=== PATIENT | male | born 1940 | race African-American/Black ===

== ENCOUNTER 2018-01-14 09:07 | Outpatient (CLI) | payer MEDICARE ==
[2018-01-14] MEDS ORDERED: ISOVUE-370 76%-LOCM 1 ML ONE (14:45)
== END 2018-01-14 09:08 | disposition home or self-care (01) ==
LOC: BICCT 09:07
PROVIDERS: ATTEND Family Medicine
DX: R10.9 Unspecified abdominal pain (principal); N28.89 Other specified disorders of kidney and ureter; E27.8 Other specified disorders of adrenal gland
CPT/HCPCS: 74160

== ENCOUNTER 2018-07-04 07:16 | Outpatient (CLI) | payer MEDICARE ==
[2018-07-04 09:36] LABS: #Eosinphils 0.2 thou/uL (0.0-0.7); #Lymphocytes 0.8 thou/uL (1.20-3.40); #Monocytes 0.5 thou/uL (0.11-0.59); #Neutrophils 2.8 thou/uL (1.40-6.50); %Basophils 0.3 % (0.0-1.0); %Eosinophils 3.6 % (0.0-10.0); %Lymphocytes 17.9 % (21.0-51.0); %Monocytes 11.8 % (0.0-10.0); %Neutrophils 66.4 % (42.0-75.0); Mean Corpuscular HGB CONC 32.4 g/dL (32.0-36.0); Mean Corpuscular Hemoglobin 32.1 pg (27.0-31.0); Mean Corpuscular Volume 99.2 fL (78.0-98.0); Mean Platelet Volume 9.4 fL (7.4-10.4); Platelet Count 92 thou/uL (130-400); RBC Distribution Width 13.1 % (11.5-14.5); Red Blood Cell (RBC) Count 4.04 mill/uL (4.70-6.10); White Blood Cell (WBC) Count 4.2 thou/uL (4.8-10.8)
[2018-07-04 09:38] LABS: INR-International Normal Ratio 1.1; PTT 29.2 SEC (22.9-36.1)
[2018-07-04 10:08] LABS: ALT (SGPT) 11 U/L (8-55); AST (SGOT) 13 U/L (5-34); Albumin 3.9 g/dL (3.4-4.8); Alkaline Phosphatase 68 U/L (40-150); Anion Gap 14 mmol/L (10-20); BUN (Urea Nitrogen) 16 mg/dL (8.4-25.7); Bilirubin, Total 1.3 mg/dL (0.2-1.2); Calc. Creatinine Clearance 0 mL/min (70-130); Calcium 9.2 mg/dL (7.8-10.44); Carbon Dioxide 24 mmol/L (23-31); Cardiac Risk 2.5 (Less than 4.5); Chloride 104 mmol/L (98-107); Cholesterol 127 mg/dl (< 200 Desired); Estimated GFR-MDRD 79; Globulin 2.4 g/dL (2.4-3.5); Glucose 155 mg/dL (83-110); HDL Cholesterol 51 mg/dL (>60 Neg Risk); LDL Cholesterol, Calculated 66 mg/dL; Potassium 3.8 mmol/L (3.5-5.1); Protein, Total 6.3 g/dL (5.8-8.1); Sodium 138 mmol/L (136-145); Triglycerides 52 mg/dL (Less than 150)
== END 2018-07-04 07:17 | disposition home or self-care (01) ==
LOC: LABBT 07:16
PROVIDERS: ATTEND Internal Medicine Cardiovascular Disease
DX: Z01.812 Encounter for preprocedural laboratory examination (principal); R07.9 Chest pain, unspecified
CPT/HCPCS: 80053; 80061; 85025; 85610; 85730

== ENCOUNTER 2018-07-13 05:51 | Day surgery (SDC) | payer MEDICARE ==
[2018-07-04 08:37] VITALS: BMI 34.5
[2018-07-13] MEDS ORDERED: Midazolam HCl 2 mg/2 ml Vial ONE (08:28)
[2018-07-13] MEDS ORDERED: Heparin 10,000 UNITS/1 ML VIAL ONE (08:29)
[2018-07-13] MEDS ORDERED: Fentanyl 100 MCG/2 ML VIAL ONE (08:29)
[2018-07-13] MEDS ORDERED: Nitroglycerin 100MG/250ML BOT 250 ML ONE (08:29)
[2018-07-13] MEDS ORDERED: Verapamil 5 MG/2 ML VIAL ONE (08:29)
[2018-07-13] MEDS ORDERED: Iopamidol 370 76% 100 ML VIAL ONE (11:33)
== END 2018-07-13 14:11 | disposition home or self-care (01) ==
LOC: CCL 05:51
PROVIDERS: ATTEND Internal Medicine Cardiovascular Disease
PROC: 4A023N7 Measurement of Cardiac Sampling and Pressure, Left Heart, Percutaneous Approach (ICD-10-PCS; principal; 2018-07-13)
PROC: B2111ZZ Fluoroscopy of Multiple Coronary Arteries using Low Osmolar Contrast (ICD-10-PCS; 2018-07-13)
DX: I25.10 Atherosclerotic heart disease of native coronary artery without angina pectoris (principal); I25.84 Coronary atherosclerosis due to calcified coronary lesion; E11.9 Type 2 diabetes mellitus without complications; E78.00 Pure hypercholesterolemia, unspecified; I10 Essential (primary) hypertension; I44.7 Left bundle-branch block, unspecified; Z87.891 Personal history of nicotine dependence; Z79.82 Long term (current) use of aspirin; Z79.84 Long term (current) use of oral hypoglycemic drugs; Z79.899 Other long term (current) drug therapy
CPT/HCPCS: 93458; 99152; 99153; C1769; J1644; J2250; J3010; Q9967

== ENCOUNTER 2018-09-26 07:08 | Outpatient (CLI) | payer MEDICARE ==
--- NOTE | 2018-09-26 09:25 | CT ---
CT ABDOMEN AND PELVIS WITH AND WITHOUT IV CONTRAST 09/26/2018 CLINICAL INFORMATION: History renal cell carcinoma on the right. COMPARISON: 01/14/2018 Technique: Multiple contiguous axial CT images are obtained through the abdomen and pelvis with IV contrast. Cor onal reformatted images are provided. FINDINGS: Lower Chest: Calcified granulomata are again seen at the right lung base. No noncalcified pulmonary n odule or mass is seen. Vessels: Vascular calcifications are seen in the abdominal aorta and involving the iliac arteries. Abdomen: Portal vein:Patent Gallbladder: No calcified gallstones. Normal caliber wall. Liver: Stable punctate low-density focus within the lateral segment left hepatic lobe. Liver otherwis e has a normal appearance. Pancreas: within normal limits. Spleen: within normal limits. Adrenals: There is fullness of each adrenal gland which is a symmetric finding. The adrenal glands al so have a stable appearance compared to study in 2018. 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 Kidneys: Again noted is a 3.2 cm fluid attenuation lesion compatible with a cyst involving the medial aspect superior pole right kidney. There is also a 3.1 cm hyperdense lesion seen in the anterior medial superior pole left kidney just anterior to the level of the cyst which does demonstrate enhanc ement on the postcontrast images. This is stable compared to the prior study but is worrisome for a neoplastic process. Subcentimeter too small to characterize hypodense lesions are again seen in the left kidney. There is no hydronephrosis bilaterally, and no renal calculus is present. Peritoneum: No ascites or free air; no fluid collection. Bowel: Multiple colonic diverticula are seen involving the colon predominantly involving the descendi ng and sigmoid colon.S mall bowel is normal in caliber.The appendix is not visualized. Patient reportedly has history of appendectomy. Mesentery and Retroperitoneum: No enlarged mesenteric or retroperitoneal lymph nodes. Abdominal Wall: within normal limits. Pelvis: Reproductive Organs: Prostate gland is mildly enlarged measuring 5.1 cm in transverse dimensions with slightly lobulated anterior margin resulting in mild mass effect on the posterior inferior aspect of the urinary bladder. Pelvis within normal limits. Bladder: Incompletely distended but otherwise demonstrates grossly normal appearance aside from mass effect on the posterior inferior aspect of the urinary bladder secondary to the prostate gland. Bones: Degenerative changes are seen in the spine. Bilateral hip osteoarthritis is present. No lytic or sclerotic osseous lesions are appreciated. IMPRESSION: 1. Enhancing mass superior pole left kidney not significantly changed in size compared to study in 20 18. This is worrisome for a neoplastic process. 2. Right renal cyst with too small to characterize hypodense lesions left kidney. 3. No renal or ureteral calculi seen bilaterally. 4. 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 5. Moderate enlargement of prostate gland. 6. Colonic diverticulosis.
[2018-09-26] MEDS ORDERED: Iopamidol 370 76% 100 ML VIAL ONE (14:59)
== END 2018-09-26 07:09 | disposition home or self-care (01) ==
LOC: CT 07:08
PROVIDERS: ATTEND Urology
DX: C64.1 Malignant neoplasm of right kidney, except renal pelvis (principal); N28.1 Cyst of kidney, acquired; N28.89 Other specified disorders of kidney and ureter; N40.0 Benign prostatic hyperplasia without lower urinary tract symptoms; K57.30 Diverticulosis of large intestine without perforation or abscess without bleeding
CPT/HCPCS: 74178; 82565; Q9967

== ENCOUNTER 2018-10-26 10:00 | Inpatient (IN) | payer MEDICARE ==
[2018-11-03] MEDS ORDERED: Fentanyl 100 MCG/2 ML VIAL ONE ×3 (06:42→12:25)
[2018-11-03] MEDS ORDERED: Bupivacaine/Epinephrine 0.25% 30 ML VIAL ONE (06:55)
[2018-11-03] MEDS ORDERED: Phenylephrine HCL 10 MG/ML VIAL ONE (07:28)
[2018-11-03] MEDS ORDERED: SUGAMMADEX SODIUM 500 MG/5 ML VIAL ONE (07:28)
[2018-11-03] MEDS ORDERED: Albuterol Sulfate HFA (OR ONLY) ONE (07:29)
[2018-11-03] MEDS ORDERED: Scopolamine 1.5 mg/72 hour Patch ONE (08:27)
[2018-11-03] MEDS ORDERED: Promethazine HCl 25 MG/ML VIAL SLOW IVP PRN (10:16)
[2018-11-03] MEDS ORDERED: Meperidine HCl/PF 25 MG/ML VIAL SLOW IVP PRN (10:16)
[2018-11-03] MEDS ORDERED: HYDROmorphone 2 MG/ML VIAL SLOW IVP PRN (10:16)
[2018-11-03] MEDS ORDERED: Ondansetron HCl/PF 4 MG/2 ML Vial IVP PRN (10:16)
[2018-11-03] MEDS ORDERED: Promethazine HCl 25 MG/ML VIAL IM PRN (10:16)
[2018-11-03] MEDS ORDERED: HYDROcodone/Acetaminophen 5/325 mg Tablet PO PRN (13:03)
[2018-11-03] MEDS ORDERED: Dextrose 5% in Water 1,000 ML IV PRN (13:03)
[2018-11-03] MEDS ORDERED: Ondansetron PF 4 MG/2 ML Vial IVP PRN (13:03)
[2018-11-03] MEDS ORDERED: Insulin Regular 300 UNITS/3 ML VIAL SC PRN (13:03)
[2018-11-03] MEDS ORDERED: Bisacodyl 10 MG SUPP PR PRN (13:03)
[2018-11-03] MEDS ORDERED: diphenhydrAMINE 25 MG CAP PO PRN (13:03)
[2018-11-03] MEDS ORDERED: Mag-Al 1200 mg/1200 mg/30 ML UDCUP PO PRN (13:03)
[2018-11-03] MEDS ORDERED: Morphine 4 MG/ML VIAL SLOW IVP PRN ×2 (13:03)
[2018-11-03] MEDS ORDERED: Dextrose 50% Abboject 50 ML SYRINGE SLOW IVP PRN (13:03)
[2018-11-03] MEDS ORDERED: Oxybutynin 5 MG TAB PO PRN (13:03)
[2018-11-03] MEDS ORDERED: hydrALAZINE 20 MG/ML VIAL SLOW IVP PRN (13:03)
[2018-11-03] MEDS ORDERED: Acetaminophen 500 MG TAB PO PRN (13:03)
[2018-11-03 14:23] LABS: Hemoglobin 13.6 g/dL (14.0-18.0); Mean Corpuscular HGB CONC 32.7 g/dL (32.0-36.0); Mean Platelet Volume 9.4 fL (7.4-10.4); Platelet Count 74 thou/uL (130-400); RBC Distribution Width 12.6 % (11.5-14.5); Red Blood Cell (RBC) Count 4.12 mill/uL (4.70-6.10); White Blood Cell (WBC) Count 7.8 thou/uL (4.8-10.8)
[2018-11-03] MEDS: Sodium Chloride 0.9% 1,000 ML IV SCH ×3 (14:37→23:54)
[2018-11-03 14:42] LABS: Anion Gap 14 mmol/L (10-20); BUN (Urea Nitrogen) 17 mg/dL (8.4-25.7); Calc. Creatinine Clearance 79 mL/min (70-130); Calcium 8.5 mg/dL (7.8-10.44); Carbon Dioxide 25 mmol/L (23-31); Chloride 102 mmol/L (98-107); Estimated GFR-MDRD 66; Glucose 180 mg/dL (83-110); Potassium 3.5 mmol/L (3.5-5.1); Sodium 137 mmol/L (136-145)
[2018-11-03] MEDS: ceFAZolin 1 GM/D5W 1 GM in Premix Bag 1 BAG IVPB SCH ×2 (14:56→20:32)
[2018-11-03] MEDS ORDERED: PROPOFOL 200 MG/20 ML VIAL ONE (15:11)
[2018-11-03] MEDS ORDERED: Rocuronium Bromide 10 MG/ML (10ML VIAL) ONE (15:11)
[2018-11-03] MEDS ORDERED: Ondansetron PF 4 MG/2 ML Vial ONE (15:11)
[2018-11-03] MEDS ORDERED: Glycopyrrolate 0.2 MG/ML 5 ML SYRINGE ONE (15:11)
[2018-11-03] MEDS ORDERED: Lidocaine 1% PF 5 ML VIAL ONE (15:11)
[2018-11-03] MEDS: HYDROcodone/Acetaminophen 5/325 mg Tablet PO PRN ×2 (16:02→20:27)
--- NOTE | 2018-11-03 18:14 | OP ---
DATE OF PROCEDURE: 11/03/2018 SERVICE: Urology. PREOPERATIVE DIAGNOSIS: Right renal cell carcinoma. POSTOPERATIVE DIAGNOSIS: Right renal cell carcinoma. PROCEDURE PERFORMED: Right laparoscopic renal cryoablation via the transabdominal approach. INDICATIONS FOR PROCEDURE: Mr. Michele is an 78-year-old black male, who initially had seen me for a right-sided renal mass measuring about 2.5 cm. He underwent a renal biopsy, which demonstrated a Sandra grade 2 RCC, which is relatively low risk. We discussed active surveillance versus minimally invasive treatments including thermal ablation. The patient elected to have this ablated instead of monitoring the mass. Risks and benefits of the surgery were discussed and he has agreed to proceed forward. DESCRIPTION OF PROCEDURE: After identification of armband and verification of consent, the patient was brought back to the operating room, where he underwent general anesthesia with endotracheal intubation. He was then placed in the modified left lateral decubitus position with the table flexed. All pressure points padded, and the patient was secured to the bed. He was then prepped and draped in usual sterile fashion. After appropriate time-out, entry into the peritoneum was obtained with a Veress needle at the umbilicus. Insufflation was carried out through high-flow and low-pressure until full pneumoperitoneum was achieved. An 11-mm trocar was inserted for the camera port lateral to the rectus muscle, and then a left-handed 5 mm port and right-handed 12 mm port were additionally placed for the laparoscopic surgery. An additional 5 mm port was used for liver tractor. Initial dissection was started by taking down some adhesions on the colon. The adhesions of the colon to the liver were also divided and liver retractor brought in. After the liver was fully mobilized to allow for cephalad retraction, the hepatic flexure of the colon was then mobilized to bring the colon medial. The duodenum was identified and also retracted medially. Through a combination of blunt dissection and careful cautery, the IVC could be identified in the renal vein heading toward into the kidney. Gerota fascia was opened, and dissection toward the renal tumor was performed. Due to the patient's history of diabetes, his fat was extremely sticky and extremely difficult to dissect. Especially in the area of the tumor, the fat was extremely adherent on the surface of the tumor. Prolonged dissection was necessary to expose the tumor and after an extended amount of time, I felt that the tumor was adequately exposed. Some of the parenchyma surrounding the tumor was not able to be exposed, but the fat was extremely adherent and the area from the inferior medial aspect of the tumor was almost adjacent to the renal vein, misstep in this location could result in severe bleeding and need for nephrectomy; therefore, I opted to leave this fat alone. The other aspects of the tumor were cleared off until most of the borders of the tumor could be identified. The adrenal gland was in very close proximity to the tumor, and this was dissected free of the tumor and retracted cephalad. A Surgicel was placed between the IVC and adrenal gland to give some space between the adrenal gland and the tumor. Once the tumor was adequately exposed, ultrasound was performed to ensure that we did indeed have a tumor, which demonstrated the tumor just anterior to the renal cyst, which was exactly as was seen on the CT scan preoperatively. This did indicate that this was indeed the tumors of concern and it did appear as an exophytic mass on laparoscopy. The borders were marked out and the entry sites for the cryoablation probes were cognitively marked. The IceRod CX 90, 17.5 cm probes were brought in through the skin just below the costal margin and placed into the tumor for a depth of approximately 2.5 to 3 cm, what was measured out on the CT scan. The free cycle was started for active freezing for 10 minutes, active thawing for 6 minutes, and a second cycle for the same duration. Cautery was used prior to removal of the probes to seal any blood vessels. There was minimal bleeding after removal of the probes. FloSeal was applied over the tumor and Surgicel applied over the FloSeal to hold it in place. The Gerota's fat was then brought back over the tumor and the colon and liver mobilized back into the original locations. Pneumoperitoneum was taken down to ensure that there was no bleeding when lifting up the Gerota fascia to ensure that without pneumo to hold pressure on any open veins and nothing was seen bleeding with insufflation pressure of approximately 4 mmHg. The peritoneum was re-insufflated, and a Adam-Ramon was used to close the 12 and 11 mm ports using a 0 Vicryl. After this, pneumoperitoneum was completely taken down and the remaining 5 mm ports were removed. The skin was then closed with a 4-0 Monocryl in subcuticular fashion and Dermabond applied. Prior to closure, the skin was re-infiltrated with 0.25% Marcaine with epinephrine with a total of 26 mL used. The patient was then taken out of position and awakened, taken to PACU for recovery in stable condition. COMPLICATIONS: None. BLOOD LOSS: Approximately 350 mL. RETAINED TUBES AND DRAINS: A 16-Sinhala Gonzalez catheter. SPECIMENS: None. DISPOSITION: The patient will be admitted to the hospital for postoperative recovery. We will plan to have him start ambulating tomorrow. Monitor his hematocrit and hemoglobin, and then he can be discharged home. Job ID: [id number]
[2018-11-03] MEDS: Brimonidine Tartrate 0.2% Ophth Soln 5 ml Bottle EA EYE SCH (20:25)
[2018-11-03] MEDS: Carvedilol 6.25 MG TAB PO SCH (20:25)
[2018-11-03] MEDS: Latanoprost 0.005% Ophth Soln 2.5 ml Bottle EA EYE SCH (20:26)
[2018-11-03] MEDS: Sacubitril 24.5 MG/Valsartan 25.5 MG TABLET PO SCH (20:26)
[2018-11-03] MEDS: Docusate 100 MG CAP PO SCH (20:26)
[2018-11-03] MEDS: DorzolamidE/Timolol 2%/0.5% Ophth Soln 10 ml Bottle EA EYE SCH (20:27)
[2018-11-04] MEDS: ceFAZolin 1 GM/D5W 1 GM in Premix Bag 1 BAG IVPB SCH (05:12)
[2018-11-04 06:21] LABS: #Lymphocytes 0.6 thou/uL (1.20-3.40); #Monocytes 0.7 thou/uL (0.11-0.59); #Neutrophils 5.9 thou/uL (1.40-6.50); %Basophils 0.1 % (0.0-1.0); %Eosinophils 0.6 % (0.0-10.0); %Lymphocytes 7.8 % (21.0-51.0); %Monocytes 9.9 % (0.0-10.0); %Neutrophils 81.6 % (42.0-75.0); Hemoglobin 12.4 g/dL (14.0-18.0); Mean Corpuscular HGB CONC 31.7 g/dL (32.0-36.0); Mean Corpuscular Hemoglobin 31.9 pg (27.0-31.0); Mean Platelet Volume 9.4 fL (7.4-10.4); Platelet Count 74 thou/uL (130-400); RBC Distribution Width 12.7 % (11.5-14.5); Red Blood Cell (RBC) Count 3.87 mill/uL (4.70-6.10); White Blood Cell (WBC) Count 7.2 thou/uL (4.8-10.8)
[2018-11-04 06:40] LABS: Anion Gap 11 mmol/L (10-20); BUN (Urea Nitrogen) 11 mg/dL (8.4-25.7); Calc. Creatinine Clearance 95 mL/min (70-130); Calcium 7.9 mg/dL (7.8-10.44); Carbon Dioxide 24 mmol/L (23-31); Chloride 104 mmol/L (98-107); Estimated GFR-MDRD 82; Glucose 153 mg/dL (83-110); Potassium 3.1 mmol/L (3.5-5.1); Sodium 136 mmol/L (136-145)
[2018-11-04] MEDS: Brimonidine Tartrate 0.2% Ophth Soln 5 ml Bottle EA EYE SCH ×2 (09:31→21:02)
[2018-11-04] MEDS: HYDROcodone/Acetaminophen 5/325 mg Tablet PO PRN (09:31)
[2018-11-04] MEDS: Carvedilol 6.25 MG TAB PO SCH ×2 (09:33→21:02)
[2018-11-04] MEDS: Hydrochlorothiazide 25 MG TAB PO SCH (09:34)
[2018-11-04] MEDS: Alogliptin 25 MG TAB PO SCH (09:34)
[2018-11-04] MEDS: Atorvastatin Calcium 40 MG TAB PO SCH (09:35)
[2018-11-04] MEDS: Finasteride 5 MG TAB PO SCH (09:35)
[2018-11-04] MEDS: Pioglitazone HCl 45 MG TAB PO SCH (09:35)
[2018-11-04] MEDS: Docusate 100 MG CAP PO SCH ×2 (09:35→21:02)
[2018-11-04] MEDS: Sacubitril 24.5 MG/Valsartan 25.5 MG TABLET PO SCH ×2 (09:35→21:03)
[2018-11-04] MEDS: DorzolamidE/Timolol 2%/0.5% Ophth Soln 10 ml Bottle EA EYE SCH ×2 (09:36→21:02)
[2018-11-04] MEDS ORDERED: Potassium Chloride 20 MEQ TAB PO SCH (15:45)
[2018-11-04] MEDS ORDERED: metFORMIN 500 MG TAB PO SCH (17:00)
[2018-11-04 17:42] VITALS: BMI 38.6
--- NOTE | 2018-11-04 18:00 | PRG ---
DATE OF SERVICE: 11/04/2018 SUBJECTIVE: The patient states he is doing well. He has not had any nausea or vomiting. His pain is minimal. He has not been out of bed due to bed rest restrictions. He has no other complaints. OBJECTIVE: VITAL SIGNS: Temperature 98.8, pulse 77, respirations 18, blood pressure 143/61, and saturation 97% on room air. GENERAL: No apparent distress, communicative, and alert. CARDIOVASCULAR: Regular rate and rhythm. ABDOMEN: Soft, nontender, mildly distended. Positive bowel sounds. Incision is clean, dry, and intact. : Gonzalez catheter in place with clear yellow urine. EXTREMITIES: No clubbing, cyanosis, or edema. LABORATORY EVALUATION: The full set of labs are in the [facility] system, which I have reviewed. Of note, white count is 7.2 with hemoglobin of 12.4, platelet count of 74. Creatinine is 1.05, potassium is 3.1. ASSESSMENT AND PLAN: An 78-year-old black male with a right renal cell carcinoma status post laparoscopic renal cryoablation. On postop day 1, he appears to be healing appropriately. He has some distention of his abdomen, but I do not think that he has an ileus. I do think that he can start walking as he has no evidence of bleeding based on his hemoglobin. We will take out his Gonzalez catheter. Stop his IV fluids, advance him to regular diet and have him ambulate. We will replace his potassium today. If his hemoglobin remains stable until tomorrow and he has no further issues, no nausea or vomiting, tolerating a regular diet, able to ambulate on his own and his pain is controlled, I think he can be discharged home. Dr. Alvaro East will be here over the weekend and will discharge the patient. I have instructed to the patient and gone over all of his discharge instructions today. Job ID: [id number]
[2018-11-04] MEDS: Sodium Chloride 0.9% 1,000 ML IV SCH (20:26)
[2018-11-04] MEDS: Latanoprost 0.005% Ophth Soln 2.5 ml Bottle EA EYE SCH (21:02)
[2018-11-05] MEDS: Hydrochlorothiazide 25 MG TAB PO SCH (08:39)
[2018-11-05] MEDS: Docusate 100 MG CAP PO SCH (08:39)
[2018-11-05] MEDS: Atorvastatin Calcium 40 MG TAB PO SCH (08:39)
[2018-11-05] MEDS: Pioglitazone HCl 45 MG TAB PO SCH (08:39)
[2018-11-05] MEDS: Alogliptin 25 MG TAB PO SCH (08:39)
[2018-11-05] MEDS: Finasteride 5 MG TAB PO SCH (08:39)
[2018-11-05] MEDS: Sacubitril 24.5 MG/Valsartan 25.5 MG TABLET PO SCH (08:39)
[2018-11-05] MEDS: Brimonidine Tartrate 0.2% Ophth Soln 5 ml Bottle EA EYE SCH (08:40)
[2018-11-05] MEDS: DorzolamidE/Timolol 2%/0.5% Ophth Soln 10 ml Bottle EA EYE SCH (08:40)
[2018-11-05] MEDS: Carvedilol 6.25 MG TAB PO SCH (08:59)
[2018-11-05 09:00] VITALS: BP 133/64
[2018-11-05 12:51] VITALS: TEMP 98.4
== END 2018-11-05 14:43 | disposition home or self-care (01) | DRG 658 ==
LOC: SURG A 11-03 05:55 → 2NO 11-03 13:48
PROVIDERS: ADMIT Urology; ATTEND Urology
PROC: 0T5 Urinary System, Destruction (ICD-10-PCS; principal; 2018-11-03)
DX: C64.1 Malignant neoplasm of right kidney, except renal pelvis (principal); I10 Essential (primary) hypertension; E78.5 Hyperlipidemia, unspecified; J44.9 Chronic obstructive pulmonary disease, unspecified; M19.91 Primary osteoarthritis, unspecified site; E66.9 Obesity, unspecified; Z68.38 Body mass index [BMI] 38.0-38.9, adult; Z98.890 Other specified postprocedural states
CPT/HCPCS: 36415; 36416; 36430; 71046; 80048; 81001; 85025; 85027; 85610; 85730; 86850; 86900; 86901; 87086; 93005; 93010; J0131; J0690; J1815; J2001; J2370; J2405; J2704; J3010

== ENCOUNTER 2018-11-02 09:28 | Outpatient (CLI) | payer MEDICARE ==
--- NOTE | 2018-10-26 11:24 | RAD ---
EXAM: Two views chest PROVIDED CLINICAL HISTORY: Preoperative evaluation. COMPARISON: CT abdomen on 01/14/2018. FINDINGS: Cardiac silhouette and pulmonary vasculature are within normal limits. The lungs are clear. Degenera tive changes are seen in the spine. There is oval-shaped area of calcification overlying the right mid lung zone. This was partially visualized on CT abdomen and demonstrated dystrophic type calcifica tions in the soft tissues right posterior lateral chest which were in a fat-containing lesion incompletely imaged on that exam. IMPRESSION: 1. No acute cardiopulmonary process. 2. Calcification overlying right midlung zone likely shown to represent dystrophic calcifications in the soft tissues right posterior lateral chest on prior CT exam. 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 However, the most superi or extent of the lesion was not completely imaged for adequate evaluation. As noted on prior examination, imaging of the entire area be required to exclude entities such as a liposarcoma.
[2018-10-26 11:49] LABS: Hemoglobin 13.8 g/dL (14.0-18.0); Mean Corpuscular HGB CONC 32.7 g/dL (32.0-36.0); Mean Corpuscular Hemoglobin 32.8 pg (27.0-31.0); Mean Platelet Volume 9.5 fL (7.4-10.4); Platelet Count 91 thou/uL (130-400); Prothrombin Time 13.7 SEC (12.0-14.7); RBC Distribution Width 12.9 % (11.5-14.5); Red Blood Cell (RBC) Count 4.21 mill/uL (4.70-6.10); White Blood Cell (WBC) Count 4.2 thou/uL (4.8-10.8)
[2018-10-26 11:50] LABS: PTT 30.1 SEC (22.9-36.1)
[2018-10-26 12:06] LABS: Anion Gap 12 mmol/L (10-20); BUN (Urea Nitrogen) 18 mg/dL (8.4-25.7); Calc. Creatinine Clearance 0 mL/min (70-130); Calcium 9.3 mg/dL (7.8-10.44); Carbon Dioxide 29 mmol/L (23-31); Chloride 101 mmol/L (98-107); Estimated GFR-MDRD 76; Glucose 145 mg/dL (83-110); Sodium 138 mmol/L (136-145)
[2018-10-26 12:14] LABS: Bilirubin Negative (Negative); Blood, Urine Negative (Negative); Clarity CLEAR (Clear); Glucose, Urine (Dipstick) Negative (Negative); Leukocyte Negative (Negative); Nitrite Negative (Negative); Protein, Urine (Dipstick) Negative (Neg-Trace); Specific Gravity, Urine 1.022 (1.002-1.036); Urobilinogen 0.2 mg/dL (0.2-1.0)
[2018-10-26 12:25] LABS: Bacteria/HPF None Seen HPF (None Seen); Hyaline Casts/LPF 0-3 HYALINE CAST LPF (0-3 Hyaline); RBC/HPF 0-3 HPF (0-3); Squamous Epithelial None Seen HPF (0-3); WBC/HPF 0-3 HPF (0-3)
--- NOTE | 2018-10-29 13:30 | EKG ---
Test Reason : Blood Pressure : / mmHG Vent. Rate : 070 BPM Atrial Rate : 070 BPM P-R Int : 198 ms QRS Dur : 164 ms QT Int : 466 ms P-R-T Axes : 058 220 019 degrees QTc Int : 503 ms Normal sinus rhythm Right superior axis deviation Left bundle branch block Abnormal ECG No previous ECGs available Confirmed by DR. Tegan HARRIS ([id number]) on 10/29/2018 1:30:32 PM Referred By: KINGSLEY Confirmed By:DR. Tegan HARRIS
== END 2018-11-02 09:29 | disposition home or self-care (01) ==
LOC: LABBT 09:28
PROVIDERS: ATTEND Urology
DX: Z01.818 Encounter for other preprocedural examination (principal); C64.1 Malignant neoplasm of right kidney, except renal pelvis; N40.1 Benign prostatic hyperplasia with lower urinary tract symptoms; N13.8 Other obstructive and reflux uropathy
CPT/HCPCS: 71046; 80048; 81001; 85027; 85610; 85730; 87086; 93005; 93010

== ENCOUNTER 2019-02-20 07:58 | Outpatient (CLI) | payer MEDICARE ==
[2019-02-20 10:45] LABS: Hemoglobin 13.5 g/dL (14.0-18.0); Mean Corpuscular HGB CONC 34.1 g/dL (32.0-36.0); Mean Corpuscular Hemoglobin 33.2 pg (27.0-31.0); Mean Corpuscular Volume 97.4 fL (78.0-98.0); Mean Platelet Volume 9.4 fL (7.4-10.4); Platelet Count 85 thou/uL (130-400); RBC Distribution Width 13.6 % (11.5-14.5); Red Blood Cell (RBC) Count 4.08 mill/uL (4.70-6.10); White Blood Cell (WBC) Count 4.5 thou/uL (4.8-10.8)
[2019-02-20 10:48] LABS: INR-International Normal Ratio 1.1; PTT 29.8 SEC (22.9-36.1); Prothrombin Time 13.9 SEC (12.0-14.7)
[2019-02-20 11:05] LABS: Anion Gap 8 mmol/L (10-20); BUN (Urea Nitrogen) 16 mg/dL (8.4-25.7); Calc. Creatinine Clearance 0 mL/min (70-130); Calcium 9.1 mg/dL (7.8-10.44); Carbon Dioxide 28 mmol/L (23-31); Chloride 101 mmol/L (98-107); Estimated GFR-MDRD 76; Glucose 149 mg/dL (83-110); Potassium 3.3 mmol/L (3.5-5.1); Sodium 134 mmol/L (136-145)
--- NOTE | 2019-02-22 16:40 | EKG ---
Test Reason : Blood Pressure : / mmHG Vent. Rate : 071 BPM Atrial Rate : 071 BPM P-R Int : 202 ms QRS Dur : 170 ms QT Int : 466 ms P-R-T Axes : 056 -52 040 degrees QTc Int : 506 ms Normal sinus rhythm Left axis deviation Left bundle branch block Abnormal ECG When compared with ECG of 26-OCT-2018 10:56, Questionable change in QRS axis Confirmed by DR. Tegan HARRIS ([id number]) on 02/22/2019 4:39:50 PM Referred By: EVERTON Confirmed By:DR. Tegan HARRIS
== END 2019-02-20 07:59 | disposition home or self-care (01) ==
LOC: LABBT 07:58
PROVIDERS: ATTEND Internal Medicine Cardiovascular Disease
DX: Z01.818 Encounter for other preprocedural examination (principal); I50.9 Heart failure, unspecified
CPT/HCPCS: 80048; 85027; 85610; 85730; 93005; 93010

== ENCOUNTER 2019-02-27 06:09 | Day surgery (SDC) | payer MEDICARE ==
[2019-02-20 09:46] VITALS: BMI 35.6
[2019-02-27] MEDS ORDERED: Lidocaine 1% (PF) 30 ML VIAL ONE (06:40)
[2019-02-27] MEDS ORDERED: Propofol 500 MG/50 ML VIAL ONE ×2 (08:10→08:57)
[2019-02-27] MEDS ORDERED: Lidocaine 2% Jelly 5 ML TUBE ONE (08:10)
[2019-02-27] MEDS ORDERED: Fentanyl 100 MCG/2 ML VIAL ONE ×2 (08:11→11:13)
[2019-02-27] MEDS ORDERED: Phenylephrine HCL 10 MG/ML VIAL ONE (08:22)
--- NOTE | 2019-02-27 10:51 | RAD ---
EXAM: Single view of the chest HISTORY: Status post pacemaker placement COMPARISON: 10/26/2018 FINDINGS: Single view of the chest shows an enlarged but stable cardiomediastinal silhouette. A left subclavian pacemaker is seen with its leads in the right atrium, right ventricle, and coronary sinus. No pneumothorax is seen. There is no evidence of consolidation, mass, or pleural effusion. Th e bones are unremarkable. IMPRESSION: Status post pacemaker placement without evidence of complication.
[2019-02-27] MEDS ORDERED: Acetaminophen/Codeine 30-300mg Tablet ONE (12:46)
[2019-02-27] MEDS ORDERED: Iopamidol 370 76% 50 ML VIAL FS ONE (12:57)
== END 2019-02-27 13:07 | disposition home or self-care (01) ==
LOC: SDC 06:09 → CCL 13:07
PROVIDERS: ATTEND Internal Medicine Cardiovascular Disease
PROC: 0JH608Z Insertion of Defibrillator Generator into Chest Subcutaneous Tissue and Fascia, Open Approach (ICD-10-PCS; principal; 2019-02-27)
PROC: 02H63KZ Insertion of Defibrillator Lead into Right Atrium, Percutaneous Approach (ICD-10-PCS; 2019-02-27)
PROC: 02HK3KZ Insertion of Defibrillator Lead into Right Ventricle, Percutaneous Approach (ICD-10-PCS; 2019-02-27)
DX: I50.22 Chronic systolic (congestive) heart failure (principal); I42.0 Dilated cardiomyopathy; I44.7 Left bundle-branch block, unspecified; I25.10 Atherosclerotic heart disease of native coronary artery without angina pectoris; E11.9 Type 2 diabetes mellitus without complications; Z87.891 Personal history of nicotine dependence; Z79.82 Long term (current) use of aspirin; Z79.84 Long term (current) use of oral hypoglycemic drugs; Z79.899 Other long term (current) drug therapy
CPT/HCPCS: 33224; 33249; 36005; 71045; 75820; C1777; C1882; C1898; C1900; J0690; J2001; J2370; J2704; J3010; J3490; Q9967

== ENCOUNTER 2019-06-02 09:00 | Outpatient (CLI) | payer MEDICARE ==
--- NOTE | 2019-06-02 13:31 | CT ---
CT Abdomen Pelvis W WO con: 06/02/2019 12:00 AM CLINICAL HISTORY: Renal mass. TECHNIQUE: Multiple contiguous axial images were obtained and a CT of the abdomen and pelvis without and with IV contrast. Postcontrast images were obtained in the nephrographic and excretory phases. Sagittal and coronal reformats were performed. COMPARISON: 09/26/2018 FINDINGS: Kidneys and Urinary Tract: Right kidney and ureter: No calculi. No hydronephrosis or hydroureter. Stable 3.3 cm enhancing mass i n the anterior aspect of the upper pole. An adjacent stable cyst is seen. No urothelial lesions: no filling defect, dilation, stricture or wall thickening. Left kidney and ureter: No calculi. No hydronephrosis or hydroureter. Subcentimeter hypodensities lik leander represent small cysts. No urothelial lesions: no filling defect, dilation, stricture or wall thickening. Urinary bladder: Normal, no calculi, mass or other lesions. Remainder of Abdomen and Pelvis: Liver: Normal. Gallbladder and biliary system: Normal. No CT evident gallstones. No biliary ductal dilatation. Spleen: Normal. Pancreas: Normal. Adrenal glands: Stable bilateral adrenal hyperplasia. GI tract: Scattered diverticula in the colon. Abdominal aorta and its major branches: Atherosclerotic calcifications. No aneurysm. Peritoneum/retroperitoneum: Normal. No ascites. No adenopathy. Pelvic structures: Normal. No pelvic lymphadenopathy. Body wall and musculoskeletal: Normal. Visualized lower thorax: Normal. No pulmonary parenchymal mass or pleural effusion. IMPRESSION: 1. Stable right renal enhancing mass 2. Bilateral renal cysts 3. Diverticulosis
== END 2019-06-02 09:01 | disposition home or self-care (01) ==
LOC: SCSCT 09:00
PROVIDERS: ATTEND Urology
DX: C64.1 Malignant neoplasm of right kidney, except renal pelvis (principal); N28.1 Cyst of kidney, acquired; N28.89 Other specified disorders of kidney and ureter; K57.30 Diverticulosis of large intestine without perforation or abscess without bleeding
CPT/HCPCS: 74178; 82565

== ENCOUNTER 2019-06-23 09:46 | Outpatient (CLI) | payer MEDICARE ==
--- NOTE | 2019-06-23 10:29 | RAD ---
XR Chest Pa Lat STANDARD HISTORY: Right renal cell cancer COMPARISON: 02/27/2019, 10/26/2018 FINDINGS: The heart size is normal. There is a left-sided pacemaker device. The lungs are well expand ed without focal areas of consolidation, pneumothorax or pleural effusions. There are degenerative changes in the spine. IMPRESSION: No radiographic evidence of acute cardiopulmonary process.
== END 2019-06-23 09:47 | disposition home or self-care (01) ==
LOC: RAD 09:46
PROVIDERS: ATTEND Urology
DX: C64.1 Malignant neoplasm of right kidney, except renal pelvis (principal)
CPT/HCPCS: 71046

== ENCOUNTER 2019-12-07 13:59 | Outpatient (CLI) | payer MEDICARE ==
--- NOTE | 2019-12-07 15:45 | CT ---
Exam: Abdomen CT with and without contrast HISTORY: Renal cell carcinoma. Assess change/status. COMPARISON: 06/02/2019, 09/26/2018 TECHNIQUE: Abdomen and pelvic CT is performed with and without contrast following urogram protocol. C oronal reformatted images are submitted for interpretation FINDINGS: Lung bases: Calcified granuloma in the right lower lobe. Heart: Normal heart size. No significant pericardial fluid. Aorta: Stable caliber. Minimal atherosclerosis. Liver: Appropriate enhancement. No enhancing masses. Spleen: Appropriate enhancement Pancreas: Appropriate enhancement Adrenal glands: Symmetric enhancement. Stable hyperplasia. Lymph nodes: No gastrohepatic, retrocrural or periportal lymphadenopathy Portal vein: Patent Gallbladder: Unremarkable Kidneys: Noncontrast: Bilaterally no hydronephrosis, nephrolithiasis or perinephric fat stranding. Bilateral u reters have normal caliber. No hydroureter, periureteral fat stranding or ureterolithiasis. Contrast: Symmetric enhancement of the kidneys. Subcentimeter hypodensities in the left renal cortex are unchanged and are statistically favored to be cysts. Stable exophytic hypodensity in the right renal cortex compatible with a stable 3 cm cyst. There is an isodense focus on the noncontrast exam w ith attenuation coefficient of 22 Hounsfield units and has attenuation coefficient of 49 Hounsfield units on the arterial phase images and 35 Hounsfield units on the 1 minute delay images. This is not compatible with a simple cyst. This lesion continues to measure 2.7 x 3.2 cm (previously measuring 3.0 x 3.0 cm) Delayed: Symmetric excretion into a decompressed intrarenal and extrarenal collecting systems. Mesentery: No mass, nephropathy, free air or free fluid Alimentary canal: Limited evaluation due to lack of oral contrast administration. No evidence of simi l obstruction. The ileocecal junction is normal. Scattered fecal material in a nondistended/nondilated colon. No lytic or blastic lesions in the osseous structures IMPRESSION: 1. Stable right renal cyst. 2. Stable right renal enhancing mass. There does not appear to be significant change in size. There i s no evidence of involvement of the associated right renal vein. Transcribed Date/Time: 12/07/2019 4:30 PM
== END 2019-12-07 14:00 | disposition home or self-care (01) ==
LOC: SCSCT 13:59
PROVIDERS: ATTEND Urology
DX: C64.1 Malignant neoplasm of right kidney, except renal pelvis (principal); N28.1 Cyst of kidney, acquired; N28.89 Other specified disorders of kidney and ureter
CPT/HCPCS: 74170

== ENCOUNTER 2021-04-01 17:30 | Outpatient (CLI) | payer MEDICARE | END 2021-04-01 17:31 | disposition home or self-care (01) | LOC: SLEEPLAB 17:30 | PROVIDERS: ATTEND Family Medicine | DX: G47.33 Obstructive sleep apnea (adult) (pediatric) (principal); R53.83 Other fatigue; I11.9 Hypertensive heart disease without heart failure; E11.9 Type 2 diabetes mellitus without complications; G47.00 Insomnia, unspecified; E66.9 Obesity, unspecified; Z68.36 Body mass index [BMI] 36.0-36.9, adult | CPT/HCPCS: 95806 ==

== ENCOUNTER 2024-05-18 06:42 | Outpatient (CLI) | payer MEDICARE, OTHER | END 2024-05-18 06:43 | disposition home or self-care (01) | LOC: NM 06:42 | PROVIDERS: ATTEND Internal Medicine | DX: E11.43 Type 2 diabetes mellitus with diabetic autonomic (poly)neuropathy (principal) | CPT/HCPCS: 78264; A9541 ==